=== PATIENT | male | born 1960 | race Caucasian/White ===

== ENCOUNTER 2022-01-04 20:55 | Emergency (ER) | payer BC ==
[2022-01-04 21:23] VITALS: BP 156/86; PULSE 78; RESP 18; TEMP 98.6
--- NOTE | 2022-01-04 22:08 | XR ---
EXAMINATION TYPE: XR thoracic spine complete DATE OF EXAM: 01/04/2022 COMPARISON: NONE HISTORY: Fall. Pain TECHNIQUE: 3 views FINDINGS: There is degenerative spur formation. There are spondylotic changes in the lower cervical spine. There is no paraspinal mass. There is a mild midthoracic dextroscoliosis. There is degenerativ e hypertrophic spurring anteriorly throughout the thoracic spine. Clips in the frontal projection no significant compression deformity. IMPRESSION: Spondylotic changes and dextroscoliosis. No fracture.
--- NOTE | 2022-01-04 22:09 | XR ---
EXAMINATION TYPE: XR cervical spine comp DATE OF EXAM: 01/04/2022 COMPARISON: NONE HISTORY: Fall. Pain TECHNIQUE: 5 views FINDINGS: Cervical vertebra have normal alignment. There is degenerative disc space narrowing at C5-6 and C6-7 with spurring of the endplates. Posterior elements are intact. There are no cervical ribs. Atlantoaxial facet joint is normal. There is uncovertebral spurring and neural foraminal impingement at C5-6 bilaterally. 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 No fracture.
--- NOTE | 2022-01-04 22:35 | ED ---
Back Pain HPI - General Chief Complaint: Back Pain/Injury Stated Complaint: Fell, back injury Time Seen by Provider: 01/04/22 21:33 Source: patient Limitations: no limitations - History of Present Illness Initial Comments: Patient is a 61-year-old male presenting with chief complaint of tingling of the bilateral hands. This began at 20:00 after an injury. Several panels fell on top of him and he fell backwards into his truck. He hit the truck between his shoulder blades, and immediately after felt numbness and tingling traveling down the arms. Since then the feeling is only localized to the hands. He took 2 Advil prior to presentation, at this time he says there is some soreness but he is not in much pain. He also admits to some neck soreness. He denies weakness, loss of sensation of the lower extremities, decreased range of motion. Denies chest pain, shortness of breath, pleuritic pain, nausea, vomiting, loss of consciousness, dizziness, hearing or vision changes, headache, neck stiffness. - Related Data Allergies Allergy/AdvReac Type Severity Reaction Status Date / Time No Known Allergies Allergy Verified 01/04/22 21:23 Review of Systems ROS Statement: Those systems with pertinent positive or pertinent negative responses have been documented in the HPI. ROS Other: All systems not noted in ROS Statement are negative. Past Medical History Past Medical History: No Reported History History of Any Multi-Drug Resistant Organisms: None Reported Past Surgical History: Hernia Repair, Orthopedic Surgery Past Psychological History: No Psychological Hx Reported Smoking Status: Never smoker Past Alcohol Use History: Occasional Past Drug Use History: None Reported General Exam Limitations: no limitations General appearance: alert, in no apparent distress Head exam: Present: atraumatic, normocephalic, normal inspection Eye exam: Present: normal appearance, PERRL, EOMI. Absent: scleral icterus, conjunctival injection, periorbital swelling Neck exam: Present: normal inspection Respiratory exam: Present: normal lung sounds bilaterally. Absent: respiratory distress, wheezes, rales, rhonchi, stridor Cardiovascular Exam: Present: regular rate, normal rhythm, normal heart sounds. Absent: systolic murmur, diastolic murmur, rubs, gallop, clicks Back exam: Present: other (Bruising and hematoma noted in the mid thoracic area where impact was most profound). Absent: tenderness, paraspinal tenderness, vertebral tenderness Neurological exam: Present: alert, oriented X3, CN II-XII intact Expanded Patient oriented to: Present: person, place, time Speech: Present: fluid speech Motor strength exam: RUE: 5, LUE: 5 Eye Response: (4) open spontaneously Motor Response: (6) obeys commands Verbal Response: (5) oriented Rahel Total: 15 Psychiatric exam: Present: normal affect, normal mood Skin exam: Present: warm, dry, intact, normal color. Absent: rash Course Vital Signs 01/04/22 21:20 Temperature 98.6 F Pulse Rate 78 Respiratory 18 Rate Blood Pressure 156/86 O2 Sat by Pulse 97 Oximetry Medical Decision Making - Medical Decision Making Patient is 61-year-old male presenting with chief complaint tingling of the bilateral hands. This started after an injury at 20:00, when he fell backwards into his truck, hitting his back and between the shoulder blades against the bumper. Immediately after the incident he felt tingling of the bilateral arms, but at this time symptoms have decreased to only the hands. On exam sensation is intact and full strength is elicited. There is no midline or paraspinal tenderness, full range of motion of the back. Range of motion does not provoke symptoms. X-ray of the cervical and thoracic spine shows no evidence of acute fracture. I discussed with the patient the typical course of a "Stinger injury", stating that symptoms sometimes take hours to days to weeks to resolve. I encouraged him to follow up with his primary care if symptoms do not resolve in the next few days. Take Motrin and Tylenol as needed for pain control. Report back to ER with any worsening symptoms or new onset alarming symptoms. I educated the patient on alarms symptoms and return parameters. I answered all questions. Patient conveyed verbal understanding and agreed to the plan. My attending is Dr. Aguayo. - Radiology Data Radiology results: report reviewed Cervical and thoracic spine x-ray: No evidence of acute fracture Disposition Clinical Impression: Thoracic back pain Disposition: HOME SELF-CARE Condition: Good Instructions (If sedation given, give patient instructions): Back Pain (ED) Additional Instructions: Stingers are a sudden burning pain or numbness in the arm often accompanied by weakness of the upper arm or shoulder muscles after an injury, most commonly associated with competition in contact sports. Stingers are also known as burners. A stinger typically resolves within minutes and the weakness increases at the same time as the pain. Stingers are thought be caused by trauma to the brachial plexus, which is a bundle of nerves in the shoulder, or trauma to a nerve as it comes out of the spine. Stingers are a frequent injury in athletes, reported in up to 65% of college players, but most are never reported as symptoms, because the symptoms are short-lived or they fear being removed from play. Here are a few things you should know about stinger: There is an increased risk of stingers with a history of cervical stenosis (tightness around the spinal cord in the neck) or foraminal stenosis (tightness around the nerve as it leaves the spine) and these athletes often have repeat stingers or chronic symptoms. The severity of stingers is determined by how long the symptoms last. Grade 1 is full recovery within two weeks. Grade 2 is symptoms for more than two weeks and sometimes not complete recovery. Grade 3 is symptoms for at least one year and little to no recovery. The treatment for stinger is to remove from competition and rest the arm until the symptoms resolve. If it is the first stinger, then the athlete can return to play when the symptoms resolve. If it is not the first stinger, then the athlete can return to play when the symptoms completely resolve if the athlete had less than three previous stingers that lasted less than 24 hours. The athlete may need further testing if the symptoms last longer than 24 hours or there has been more than three previous stingers. Consider other causes when the symptoms are most prominent in the pinky and ring finger, symptoms in both arms, symptoms in the legs, or localized neck pain and stiffness. There are several ways to prevent stingers by including more protective neck rolls and pads to equipment, high riding shoulder pads, proper tackling techniques with avoidance of dropping shoulder and maintaining an upright position, and strengthening and maintaining range of motion in the neck through physical therapy. Follow-up with primary care in 1 week. Report back to ER with any worsening symptoms or new onset alarming symptoms, including but not limited to weakness, loss of sensation Is patient prescribed a controlled substance at d/c from ED?: No Referrals: Nonstaff,Physician [REFERRING] - 01/11/22 Time of Disposition: 22:43
== END 2022-01-04 23:00 | disposition home or self-care (01) ==
LOC: EC 20:55
DX: M54.6 Pain in thoracic spine (principal); W23.1XXA Caught, crushed, jammed, or pinched between stationary objects, initial encounter; Y92.812 Truck as the place of occurrence of the external cause
CPT/HCPCS: 72050; 72072; 99283